=== PATIENT | male | born 1960 ===

== ENCOUNTER 2018-02-11 02:44 | Outpatient (CLI) | payer OTHER | END 2018-02-11 23:59 | disposition home or self-care (01) | LOC: DIABETIC 02:44 | PROVIDERS: ATTEND Family Medicine | DX: E11.65 Type 2 diabetes mellitus with hyperglycemia (principal) | CPT/HCPCS: G0108 ==

== ENCOUNTER 2018-11-25 13:18 | Outpatient (CLI) | payer OTHER | END 2018-11-25 23:59 | disposition home or self-care (01) | LOC: DIABETIC 13:18 | PROVIDERS: ATTEND Family Medicine | DX: E11.65 Type 2 diabetes mellitus with hyperglycemia (principal); Z79.84 Long term (current) use of oral hypoglycemic drugs | CPT/HCPCS: G0108 ==